=== PATIENT | male | born 1975 | race Caucasian/White ===

== ENCOUNTER 2021-05-21 08:34 | Day surgery (SDC) | payer OTHER ==
[~2021-05-21 08:34] MED LIST: Lactated Ringers 1,000 ML IV SCH; Lidocaine 1%/Sod Bicarbonate in NS 8.4% 1 ML Syringe IDERM PRN; Sodium Chloride 0.9% 10 ML Syringe FLUSH PRN; Sodium Chloride 0.9% 10 ML Syringe FLUSH SCH
[2021-05-21] MEDS ORDERED: Propofol 200 MG/20 ML SDV ONE ×4 (10:02→10:48)
[2021-05-21] MEDS ORDERED: Lidocaine 1% 4 ML ONE (10:02)
[2021-05-21] MEDS ORDERED: Lactated Ringers 1,000 ML ONE (10:36)
== END 2021-05-21 12:17 | disposition home or self-care (01) ==
LOC: JD.SDS 08:34
PROVIDERS: ATTEND Surgery
DX: Z12.11 Encounter for screening for malignant neoplasm of colon (principal); F17.220 Nicotine dependence, chewing tobacco, uncomplicated; E66.9 Obesity, unspecified; Z68.33 Body mass index [BMI] 33.0-33.9, adult
CPT/HCPCS: 45378; J2704; J7120